=== PATIENT | male | born 1995 | race Caucasian/White ===

== ENCOUNTER 2017-05-22 21:39 | Emergency (ER) | payer OTHER ==
[~2017-05-22] VITALS: Ht 177.8 cm; Wt 94.3 kg
[2017-05-22 21:42] VITALS: TEMP 37.5; Ht 177.8 cm; Wt 94.3 kg
[2017-05-22] MEDS ORDERED: DEXAMETHASONE SOD INJ 4 MG/ML VIAL IV STA (22:18)
[2017-05-22] MEDS ORDERED: AMPICILLIN/SULBACTAM SOD INJ 3,000 MG in SODIUM CHLORIDE 0.9% 100ML 100 ML IV STA (22:18)
[2017-05-22] MEDS ORDERED: SODIUM CHLORIDE 0.9% 1000ML 1,000 ML, SODIUM CHLORIDE 0.9% 1000ML 1,000 ML IV ONE (22:30)
[2017-05-22] MEDS ORDERED: IBUP-1050 PO (22:33)
[2017-05-22] MEDS ORDERED: AMOX500C3 PO (22:33)
[2017-05-22 22:38] LABS: BASO % 0.2 %; BASO ABS # 0.02 K/uL (0-0.2); EOS % 0.4 %; EOS ABS # 0.05 K/uL (0-0.5); HEMATOCRIT 45.3 % (42-52); HEMOGLOBIN 16.4 g/dL (14.0-18.0); IG# 0.06 K/uL (0.00-0.02); LYMPH % 17.3 %; MEAN CORPUSCULAR HEMOGLOBIN 31.8 pg (25-34); MEAN CORPUSCULAR HGB CONC 36.2 g/dl (32-36); MEAN PLATELET VOLUME 9.6 fL (7.4-10.4); MONO % 8.2 %; NEUT % 73.4 %; NEUT ABS # 8.92 K/uL (1.4-6.5); PLATELET COUNT 234 K/uL (130-400); RED CELL DISTRIBUTION WIDTH CV 12.2 % (11.5-14.5); RED CELL DISTRIBUTION WIDTH SD 39.1 fL (36.4-46.3); WHITE BLOOD COUNT 12.15 K/uL (4.8-10.8)
[2017-05-22 22:57] LABS: ALBUMIN 4.1 gm/dl (3.4-5.0); CALCIUM 9.5 mg/dl (8.5-10.1); POTASSIUM 3.2 mmol/L (3.5-5.1)
[2017-05-22 23:00] LABS: TOTAL PROTEIN 8.9 gm/dl (6.4-8.2)
[2017-05-22 23:01] VITALS: BP 129/67
[2017-05-23] MEDS ORDERED: AMOX875T PO (00:21)
[2017-05-23] MEDS ORDERED: PRED50TA PO (00:21)
[2017-05-23 00:34] VITALS: PULSE 68; O2SAT 99
--- NOTE | 2017-05-24 15:52 | EMERGENCY ROOM VISIT NOTE ---
History First contact with patient: 22:05 Chief Complaint: SORETHROAT Stated Complaint: IN PAIN THROAT History of Present Illness The patient is a 22 year old male who presents to the Emergency Room with complaints of sore throat symptoms for the past 6 or 7 days. Evidently the patient is from out of town and is traveling for vacation. His pain worsened on his travels, prompting him to stop here for evaluation. He has been on 2 or 3 days of amoxicillin without significant improvement of his symptoms. He does report fever at home. He is able to swallow, although it is painful. The patient has a history of mono in the past. He is not diabetic and considers himself otherwise usually healthy. He is accompanied by his mother today. He rates his discomfort a 7/10. Review of Systems More than 10 systems were reviewed and otherwise negative with the exception of history of present illness. Past Medical/Surgical History No chronic medical disease Family History No pertinent family history Social History Smoking Status: Never Smoker Housing Status: lives with family Current/Historical Medications Scheduled Amoxicillin (Amoxil), 1 TAB PO TID Amoxicillin & Pot Clavulanate (Augmentin 875-125 mg), 1 TAB PO BID Prednisone (Prednisone), 50 MG PO DAILY Scheduled PRN Ibuprofen (Advil), 200-600 MG PO Q4H PRN for Pain Physical Exam Vital Signs Date Time Temp Pulse Resp B/P (MAP) Pulse Ox O2 Delivery O2 Flow Rate FiO2 05/23/17 00:34 68 18 99 05/22/17 23:01 99 18 129/67 98 Room Air 05/22/17 21:42 97 Room Air 05/22/17 21:42 37.5 101 18 150/82 97 Room Air Physical Exam VITALS: Vitals are noted on the nurse's note and reviewed by myself. Vital signs stable. GENERAL: Well-developed, well-nourished, white male who appears in moderate discomfort secondary to his complaint. He is able to speak with a full voice. He is handling his secretions. EARS: External ear normal. External auditory canals clear, tympanic membranes pearly amaro without erythema or effusion bilaterally. EYES: Pupils equal round and reactive to light and accommodation. Conjunctivae without injection, sclerae without icterus. Extraocular movements intact. NOSE: Patent, turbinates without inflammation or discharge. MOUTH: Mucous membranes moist. Tonsils are 3+ enlarged. There is notable erythema with mild left-sided edema. There is no obvious soft palate involvement, although the lateral aspect of the left tonsil is full. Uvula is midline. No swelling or tenderness underneath the tongue. No obvious dental caries. NECK: Supple without nuchal rigidity. Shotty left anterior chain adenopathy. HEART: Regular rate and rhythm without murmurs gallops or rubs. LUNGS: Clear to auscultation bilaterally without wheezes, rales or rhonchi. No retractions or accessory muscle use. Medical Decision & Procedures Laboratory Results 05/22/17 22:25 Red Blood Count 5.15, Mean Corpuscular Volume 88.0, Mean Corpuscular Hemoglobin 31.8, Mean Corpuscular Hemoglobin Concent 36.2, Mean Platelet Volume 9.6, Neutrophils (%) (Auto) 73.4, Lymphocytes (%) (Auto) 17.3, Monocytes (%) (Auto) 8.2, Eosinophils (%) (Auto) 0.4, Basophils (%) (Auto) 0.2, Neutrophils # (Auto) 8.92, Lymphocytes # (Auto) 2.10, Monocytes # (Auto) 1.00, Eosinophils # (Auto) 0.05, Basophils # (Auto) 0.02 05/22/17 22:25 Test 05/22/17 22:25 White Blood Count 12.15 K/uL (4.8-10.8) Red Blood Count 5.15 M/uL (4.7-6.1) Hemoglobin 16.4 g/dL (14.0-18.0) Hematocrit 45.3 % (42-52) Mean Corpuscular Volume 88.0 fL (80-100) Mean Corpuscular Hemoglobin 31.8 pg (25-34) Mean Corpuscular Hemoglobin Concent 36.2 g/dl (32-36) Platelet Count 234 K/uL (130-400) Mean Platelet Volume 9.6 fL (7.4-10.4) Neutrophils (%) (Auto) 73.4 % Lymphocytes (%) (Auto) 17.3 % Monocytes (%) (Auto) 8.2 % Eosinophils (%) (Auto) 0.4 % Basophils (%) (Auto) 0.2 % Neutrophils # (Auto) 8.92 K/uL (1.4-6.5) Lymphocytes # (Auto) 2.10 K/uL (1.2-3.4) Monocytes # (Auto) 1.00 K/uL (0.11-0.59) Eosinophils # (Auto) 0.05 K/uL (0-0.5) Basophils # (Auto) 0.02 K/uL (0-0.2) RDW Standard Deviation 39.1 fL (36.4-46.3) RDW Coefficient of Variation 12.2 % (11.5-14.5) Immature Granulocyte % (Auto) 0.5 % Immature Granulocyte # (Auto) 0.06 K/uL (0.00-0.02) Anion Gap 6.0 mmol/L (3-11) Est Creatinine Clear Calc Drug Dose 135.9 ml/min Estimated GFR () 125.0 Estimated GFR (Non- 107.9 BUN/Creatinine Ratio 15.0 (10-20) Calcium Level 9.5 mg/dl (8.5-10.1) Total Bilirubin 1.2 mg/dl (0.2-1) Aspartate Amino Transf (AST/SGOT) 11 U/L (15-37) Alanine Aminotransferase (ALT/SGPT) 39 U/L (12-78) Alkaline Phosphatase 89 U/L (45-117) Total Protein 8.9 gm/dl (6.4-8.2) Albumin 4.1 gm/dl (3.4-5.0) Globulin 4.8 gm/dl (2.5-4.0) Albumin/Globulin Ratio 0.9 (0.9-2) Monoscreen NEG (NEG) Medications Administered Medications (Trade) Dose Ordered Sig/Maximino Route Start Time Stop Time Status Last Admin Dose Admin Ampicillin Sodium/ Sulbactam Sodium 3000 mg/Sodium Chloride 108 ml @ 200 mls/hr NOW STAT IV 05/22/17 22:18 05/22/17 22:50 DC 05/22/17 22:57 200 MLS/HR Dexamethasone Sodium Phosphate (Decadron Inj) 10 mg NOW STAT IV 05/22/17 22:18 05/22/17 22:21 DC 05/22/17 22:32 10 MG Sodium Chloride/ Sodium Chloride 2,000 ml @ 999 mls/hr Q2H1M ONCE IV 05/22/17 22:30 05/23/17 00:30 DC 05/22/17 22:35 999 MLS/HR ED Course Physical exam and history were performed. Nursing notes, EMR, and Medication List were personally reviewed. Patient appears to have severe sore throat symptoms with possible very early peritonsillar abscess findings. The case was discussed with my attending physician, Dr. Garcia, who agrees there is no distinct abscess on exam. IV access was established and labs are obtained. The patient was hydrated with normal saline and given IV Unasyn and IV Decadron. The patient's blood work is as above and was reviewed. He does have a very minimally elevated white blood cell count of 12,000. He does not have a significant anemia, bandemia, or other significant findings. Graves is negative. On reevaluation the patient did feel much improved after steroids, hydration, and antibiotics. I did discuss the case with the on-call ENT, Dr. Kiran, who would like to see the patient in his office in about 8 hours when the office opens. The patient was given further instructions as below and was pleased with plan of care. He was invited back to the ER with any new, worsening, or concerning symptoms. The chart was completed utilizing [employer] Speech Voice Recognition Software. Grammatical errors, random word insertions, pronoun errors, and incomplete sentences are an occasional consequence of this system due to software limitations, ambient noise, and hardware issues. Any formal questions or concerns about the content, text, or information contained within the body of this dictation should be directly addressed to the provider for clarification. . Medical Decision Differential diagnosis: Etiologies such as viral syndrome, tonsillitis, streptococcal pharyngitis, mononucleosis, peritonsillar abscess, retropharyngeal abscess, otitis, pneumonia , influenza, as well as others were entertained. Impression Primary Impression: Pharyngitis Departure Information Dispostion Home / Self-Care Condition GOOD Prescriptions Prednisone (Prednisone) 50 Mg Tab 50 MG PO DAILY for 4 Days, #4 TAB Prov: Ralph Bess PA-C 05/23/17 Amoxicillin & Pot Clavulanate (Augmentin 875-125 mg) 1 Tab Tab 1 TAB PO BID for 10 Days, #20 TAB Prov: Ralph Bess PA-C 05/23/17 Referrals Sarwat Kiran D.O. Forms HOME CARE DOCUMENTATION FORM, IMPORTANT VISIT INFORMATION Patient Instructions My [facility] Additional Instructions You were seen and evaluated today on an emergency basis only. This is not a substitute for, or an effort to provide, complete comprehensive medical care. It is not possible to recognize and treat all injuries or illnesses in a single emergency department visit. For this reason it is recommended that you followup with ENT, Dr. iFore's office, tomorrow for recheck of your sore throat. For baseline pain relief you may alternate ibuprofen and acetaminophen every 4 hours for pain control. Take 600 mg ibuprofen (Advil) and then 4 hours later take 1000 mg acetaminophen (Tylenol). Do not take more than 3000 mg acetaminophen in a single day. Amoxicillin Clavulanate (Augmentin) 875mg: Take one pill twice daily for 10 days for your infection. All antibiotics can cause diarrhea. If this occurs and you feel worse or it does not resolve in 1-2 days follow up with your doctor or return to the Emergency Department as this could be signs of serious underlying problems. Any medication can cause an allergic reaction, stop the pills immediately and return to the ER for rash, hives, breathing difficulties, or swelling. Take prednisone as prescribed. You are welcome to return to the emergency department anytime with new, worsening, or concerning symptoms.
== END 2017-05-23 00:35 | disposition home or self-care (01) ==
LOC: C.EDB 21:41 → C.EDC 05-23 00:35
DX: J02.9 Acute pharyngitis, unspecified (principal); D72.829 Elevated white blood cell count, unspecified